=== PATIENT | female | born 1955 | race Caucasian/White ===

== ENCOUNTER 2018-11-14 10:37 | Emergency (ER) | payer MEDICAID, OTHER ==
[~2018-11-14] VITALS: Ht 157.5 cm; Wt 65.8 kg
--- NOTE | 2018-11-14 11:24 | NUR ---
PT WAS EVALUATED BY DR VALLE. PT WAS D/C'd TO HOME. D/C INSTRUCTIONS GIVEN TO THE PT.
[2018-11-14 11:29] VITALS: BP 136/77
== END 2018-11-14 11:30 | disposition home or self-care (01) ==
LOC: ER 10:37
DX: R05 Cough (principal); R09.82 Postnasal drip; E03.9 Hypothyroidism, unspecified; E78.00 Pure hypercholesterolemia, unspecified; Z88.1 Allergy status to other antibiotic agents
CPT/HCPCS: A4663